=== PATIENT | female | born 1970 | race Caucasian/White ===

== ENCOUNTER 2017-02-27 08:15 | Emergency (ER) | payer MEDICARE, MEDICAID ==
[~2017-02-27] VITALS: Ht 144.8 cm; Wt 81.0 kg
[~2017-02-27 08:15] MED LIST: BUDE10.22 INH; MONT10TA6 PO; SIMV80TA PO; TRAZ50TA18 PO; VENL150C
[2017-02-27 08:16] VITALS: BP 160/90
== END 2017-02-27 08:48 | disposition home or self-care (01) ==
LOC: ED 08:45
DX: L02.211 Cutaneous abscess of abdominal wall (principal); E78.5 Hyperlipidemia, unspecified; J44.9 Chronic obstructive pulmonary disease, unspecified; G89.29 Other chronic pain; M54.9 Dorsalgia, unspecified
CPT/HCPCS: 99283

== ENCOUNTER 2017-03-01 09:10 | Emergency (ER) | payer MEDICARE, MEDICAID ==
[~2017-03-01] VITALS: Ht 144.8 cm; Wt 79.7 kg
[2017-03-01 09:19] VITALS: BP 141/87
== END 2017-03-01 12:03 | disposition home or self-care (01) ==
LOC: ED 11:54
DX: L02.211 Cutaneous abscess of abdominal wall (principal); J44.9 Chronic obstructive pulmonary disease, unspecified; E78.5 Hyperlipidemia, unspecified
CPT/HCPCS: 99283

== ENCOUNTER 2017-03-05 08:41 | Emergency (ER) | payer MEDICARE, MEDICAID ==
[~2017-03-05] VITALS: Ht 144.8 cm; Wt 79.1 kg
[2017-03-05 09:08] VITALS: BP 144/77
== END 2017-03-05 09:39 | disposition home or self-care (01) ==
LOC: ED 09:33
DX: L02.211 Cutaneous abscess of abdominal wall (principal); J44.9 Chronic obstructive pulmonary disease, unspecified
CPT/HCPCS: 99281